=== PATIENT | male | born 1975 | race Caucasian/White ===

== ENCOUNTER 2016-04-21 07:40 | Emergency (ER) | payer BC ==
[2016-04-21 07:51] VITALS: BP 116/82
--- NOTE | 2016-04-21 08:04 | UC ---
Shoulder Pain HPI - HPI Summary HPI Summary: awoke with severe left shoulder pain this am. No known injury. Had similar episode, dx'd neuritis, with right shoulder a few years ago. 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 Did not do any heavy lifting or repetitive work that he can identify. States he can't move it. - History of Current Complaint Chief Complaint: UCUpperExtremity Stated Complaint: LEFT ARM COMPLAINT Time Seen by Provider: 04/21/16 08:01 Hx Obtained From: Patient Onset/Duration: Gradual Onset, Lasting Days, Still Present Timing: Constant Severity Initially: Moderate Severity Currently: Severe Location Of Pain: Is Discrete @ - left AC joint, left shoulder Pain Intensity: 9 Pain Scale Used: 0-10 Numeric Character: Sharp Aggravating Factor(s): Movement Alleviating Factor(s): Nothing Associated Signs And Symptoms: Positive: Negative Related History: Similar Episode/Dx As - neuritis, Dominant Hand Right - Risk Factors Non-Orthopedic Risk Factor: Negative DVT Risk Factors: Negative Septic Arthritis Risk Factor: Negative - Allergies/Home Medications Allergies/Adverse Reactions: Allergies Allergy/AdvReac Type Severity Reaction Status Date / Time bee stings Allergy See Comment Uncoded 04/21/16 07:46 Home Medications: Home Medications Ibuprofen [Advil] 400 mg PO ONCE PRN 04/21/16 [History Confirmed 04/21/16] PMH/Surg Hx/FS Hx/Imm Hx Previously Healthy: Yes - Surgical History Surgical History: None - Family History Known Family History: Positive: Hypertension - Social History Occupation: Employed Part-time Alcohol Use: Occasionally Substance Use Type: None Smoking Status (MU): Current Some Day Smoker Type: Cigarettes, Smokeless Tobacco Amount Used/How Often: occasional - Immunization History Most Recent Influenza Vaccination: no Review of Systems Constitutional: Negative Skin: Negative Eyes: Negative ENT: Negative Respiratory: Negative Cardiovascular: Negative Gastrointestinal: Negative Genitourinary: Negative Motor: Negative Neurovascular: Negative Musculoskeletal: Arthralgia Neurological: Negative Psychological: Negative All Other Systems Reviewed And Are Negative: Yes Physical Exam Triage Information Reviewed: Yes Appearance: Well-Appearing, Pain Distress, Thin Vital Signs: Initial Vital Signs Temp 98.4 F 04/21/16 07:47 Pulse 64 04/21/16 07:47 Resp 14 04/21/16 07:47 BP 116/82 04/21/16 07:47 Pulse Ox 100 04/21/16 07:47 Vital Signs Reviewed: Yes Eyes: Positive: Conjunctiva Clear ENT: Positive: Normal ENT inspection Neck exam: Normal Neck: Positive: Supple, Nontender, No Lymphadenopathy Respiratory: Positive: Lungs clear, Normal breath sounds, No respiratory distress Cardiovascular: Positive: RRR, No Murmur, Pulses Normal, Brisk Capillary Refill Musculoskeletal: Positive: ROM Limited @ - left shoulder. limited abduction, flexion and extension. Point tenderness at AC joint. distal pulses/sensation intact Neurological: Positive: Alert, Muscle Tone Normal Psychological Exam: Normal Skin Exam: Normal Shoulder Course/Dx - Course Course Of Treatment: xray shows calcific tendinitis - Differential Dx/Diagnosis Differential Diagnosis/HQI/PQRI: AC Separation, Arthritis, Bursitis Provider Diagnoses: calcific tendinitis - Physician Notification/Consults Discussed Patient Care With: Dr. Ibarra's officeJesenia Instructed by Provider To: Send To Office Now Discharge - Discharge Plan Condition: Stable Disposition: HOME Prescriptions: Ibuprofen TAB* [Motrin TAB* 600 MG] 600 mg PO Q6H PRN #20 tab PRN Reason: Pain Patient Education Materials: Calcific Tendinitis (ED) Referrals: Teddy Ibarra MD [Medical Doctor] - As Soon As Possible (go to Dr. Ibarra's office now. ) No Primary Care Phys,NOPCP [Primary Care Provider] -
[2016-04-21] MEDS ORDERED: Ibuprofen TAB* 400 MG PO ONE (08:25)
--- NOTE | 2016-04-21 09:03 | RAD ---
INDICATION: Acromioclavicular joint pain left shoulder. TECHNIQUE: 3 views of the left shoulder were obtained. FINDINGS: The bones are in normal alignment. No fracture is seen. Joint spaces appear maintained. There is a large calcific deposit present adjacent to the superolateral aspect of the humeral head. IMPRESSION: FINDINGS CONSISTENT WITH CALCIFIC TENDINITIS.
== END 2016-04-21 09:16 | disposition home or self-care (01) ==
LOC: UCCORT 07:40
DX: M75.32 Calcific tendinitis of left shoulder (principal); F17.210 Nicotine dependence, cigarettes, uncomplicated; F17.220 Nicotine dependence, chewing tobacco, uncomplicated; Z91.030 Bee allergy status
CPT/HCPCS: 99212; A9270-GY; G0463